=== PATIENT | male | born 1950 | race African-American/Black ===

== ENCOUNTER 2018-08-06 12:00 | Emergency (ER) | payer MEDICARE, MEDICAID ==
[~2018-08-06] VITALS: Ht 185.4 cm; Wt 81.8 kg
[2018-08-06] MEDS ORDERED: HYDR50TA PO (12:14)
[2018-08-06 13:57] LABS: BASOPHILS % (AUTO) 1.5 % (0.0-2.0); EOSINOPHILS % (AUTO) 2.1 % (1.0-6.0); HEMOGLOBIN 16.4 g/dL (13.5-17.5); LYMPHOCYTES # (AUTO) 1.5 K/uL (1.0-4.8); LYMPHOCYTES % (AUTO) 33.7 % (22.0-44.0); MEAN CORPUSCULAR HEMOGLOBIN 34.5 pg (26.0-34.0); MEAN CORPUSCULAR HGB CONC 34.1 G/dL (31.0-37.0); MEAN CORPUSCULAR VOLUME 101 fL (80-100); MONOCYTES # (AUTO) 0.7 K/uL (0.1-1.0); MONOCYTES % (AUTO) 14.8 % (2.0-9.0); NEUTROPHILS # (AUTO) 2.1 K/uL (1.8-7.7); NEUTROPHILS % (AUTO) 47.9 % (40.0-70.0); PLATELET COUNT (AUTO) 187 K/uL (150-450); RED BLOOD CELL COUNT(AUTO) 4.75 MIL/uL (4.50-5.90); RED CELL DISTRIBUTION WIDTH 13.5 % (11.5-14.5)
[2018-08-06 14:09] LABS: ANION GAP 4 mmol/L (8-16); CALCIUM, TOTAL 9.7 mg/dL (8.8-10.5); CARBON DIOXIDE 33 mmol/L (22-29); CHLORIDE 100 mmol/L (98-107); CREATININE 1.04 mg/dL (0.60-1.30); GLOMERULAR FILTR. RATE CALC > 60 mL/min (>60); GLUCOSE,RANDOM 98 mg/dL (70-110); POTASSIUM 4.6 mmol/L (3.5-5.1); SODIUM SERUM 137 mmol/L (136-145); UREA NITROGEN, BLOOD 13 mg/dL (7-18)
[2018-08-06 14:17] LABS: D-DIMER 0.24 mg/L FEU (0.00-0.50); PROTHROMBIN TIME 10.4 SEC (9.4-11.6)
[2018-08-06 14:23] LABS: APPEARANCE,URINE CLEAR (CLEAR); BILIRUBIN,URINE PRELIM. POSITIVE (NEGATIVE); GLUCOSE, URINE (UA) NEGATIVE (NEGATIVE); KETONES,URINE TRACE mg/dL (NEGATIVE); LEUKOCYTE ESTERASE ,URINE NEGATIVE (NEGATIVE); NITRATE,URINE NEGATIVE (NEGATIVE); OCCULT BLOOD,URINE TRACE (NEGATIVE); PH,URINE 6.5 (5.0-8.0); PROTEIN,URINE TRACE (NEGATIVE)
[2018-08-06 14:25] LABS: BACTERIA,URINE None Seen /HPF (None Seen); RBC,URINE 0-2 /HPF (0-2); WBC,URINE None Seen /HPF (0-5)
[2018-08-06 14:29] LABS: B-TYPE NATRIURETIC PEPTIDE 110 pg/mL (0-100)
[2018-08-06 14:33] LABS: ALANINE AMINOTRANSFERASE 40 U/L (12-78); ALKALINE PHOSPHATASE 119 U/L (46-116); ASPARTATE AMINOTRANSFERASE 42 U/L (15-37); BILIRUBIN,TOTAL 1.6 mg/dL (0.1-1.0); CREATINE KINASE, TOTAL ONLY 147 U/L (39-308); TOTAL PROTEIN, SERUM 8.8 g/dL (6.4-8.2)
[2018-08-06 16:11] VITALS: BP 150/93
[2018-08-07] MEDS ORDERED: LORA10TA7 PO (15:25)
[2018-08-07] MEDS ORDERED: VITAD1000 PO (15:25)
[2018-08-07] MEDS ORDERED: IBUP-2071 PO (15:25)
[2018-08-07] MEDS ORDERED: ATOR20TA86 PO (15:25)
[2018-08-07] MEDS ORDERED: LOSA1TAB37 PO (15:25)
== END 2018-08-06 16:14 | disposition home or self-care (01) ==
LOC: EMS 12:00
DX: R06.02 Shortness of breath (principal); R20.2 Paresthesia of skin; I10 Essential (primary) hypertension; R79.1 Abnormal coagulation profile
CPT/HCPCS: 85379; 93005; 99285

== ENCOUNTER 2018-08-07 15:19 | Inpatient (IN) | payer MEDICARE, MEDICAID ==
[~2018-08-07] VITALS: Ht 185.4 cm; Wt 88.2 kg
[~2018-08-07 15:19] MED LIST: HYDR50TA PO
[2018-08-07] MEDS ORDERED: LORA10TA7 PO (15:25)
[2018-08-07] MEDS ORDERED: ATOR20TA86 PO (15:25)
[2018-08-07] MEDS ORDERED: IBUP-2071 PO (15:25)
[2018-08-07] MEDS ORDERED: LOSA1TAB37 PO (15:25)
[2018-08-07] MEDS ORDERED: VITAD1000 PO (15:25)
[2018-08-07] MEDS ORDERED: MethylPREDNISolone SOD SUCC 125 MG/2 ML VIAL IVP ONE (17:15)
[2018-08-07] MEDS ORDERED: EPINEPHrine 1:1,000 [1 MG/ML] AMP IM ONE (17:15)
[2018-08-07] MEDS ORDERED: DiphenhydrAMINE HCL 50 MG/ML VIAL IVP ONE (17:15)
[2018-08-07] MEDS ORDERED: RANITIDINE HCL 25 MG/ML 2 ML VIAL IVP ONE (17:15)
[2018-08-07 17:20] LABS: BASOPHILS % (AUTO) 1.3 % (0.0-2.0); EOSINOPHILS % (AUTO) 2.1 % (1.0-6.0); HEMATOCRIT 45.9 % (41-53); HEMOGLOBIN 15.8 g/dL (13.5-17.5); LYMPHOCYTES # (AUTO) 1.8 K/uL (1.0-4.8); LYMPHOCYTES % (AUTO) 38.2 % (22.0-44.0); MEAN CORPUSCULAR HEMOGLOBIN 34.1 pg (26.0-34.0); MEAN CORPUSCULAR HGB CONC 34.5 G/dL (31.0-37.0); MEAN CORPUSCULAR VOLUME 99 fL (80-100); MONOCYTES # (AUTO) 0.6 K/uL (0.1-1.0); MONOCYTES % (AUTO) 12.5 % (2.0-9.0); NEUTROPHILS # (AUTO) 2.2 K/uL (1.8-7.7); NEUTROPHILS % (AUTO) 45.9 % (40.0-70.0); PLATELET COUNT (AUTO) 211 K/uL (150-450); RED BLOOD CELL COUNT(AUTO) 4.64 MIL/uL (4.50-5.90); RED CELL DISTRIBUTION WIDTH 13.3 % (11.5-14.5)
[2018-08-07 17:26] LABS: ANION GAP 6 mmol/L (8-16); CALCIUM, TOTAL 9.6 mg/dL (8.8-10.5); CARBON DIOXIDE 30 mmol/L (22-29); CHLORIDE 100 mmol/L (98-107); CREATININE 0.88 mg/dL (0.60-1.30); GLOMERULAR FILTR. RATE CALC > 60 mL/min (>60); GLUCOSE,RANDOM 95 mg/dL (70-110); POTASSIUM 4.3 mmol/L (3.5-5.1); SODIUM SERUM 136 mmol/L (136-145); UREA NITROGEN, BLOOD 11 mg/dL (7-18)
[2018-08-07 17:32] LABS: ALANINE AMINOTRANSFERASE 37 U/L (12-78); ALKALINE PHOSPHATASE 113 U/L (46-116); ASPARTATE AMINOTRANSFERASE 39 U/L (15-37); BILIRUBIN,TOTAL 1.2 mg/dL (0.1-1.0); TOTAL PROTEIN, SERUM 8.7 g/dL (6.4-8.2)
[2018-08-07 18:31] LABS: PLATELET MORPHOLOGY COMMENT GIANT PLTS PRESENT
[2018-08-07] MEDS ORDERED: ONDANSETRON HCL 4 MG/2 ML VIAL IVP PRN ×2 (19:45→22:30)
[2018-08-07] MEDS ORDERED: 0.9% SODIUM CHLORIDE 10 ML SYRINGE IVP PRN (19:45)
[2018-08-07] MEDS ORDERED: ACETAMINOPHEN 325 MG TABLET PO PRN ×2 (19:45→22:30)
[2018-08-07 21:22] VITALS: BP 160/91
[2018-08-07] MEDS ORDERED: BISACODYL 10 MG RECTAL RECTAL SUPPOSITORY PR PRN (22:30)
[2018-08-07] MEDS ORDERED: MORPHINE SULFATE 2 MG/ML SYRINGE IVP PRN (22:30)
[2018-08-07] MEDS ORDERED: MAGNESIUM HYDROXIDE SUSPENSION 30 ML UDCUP PO PRN (22:30)
[2018-08-07] MEDS: MethylPREDNISolone SOD SUCC 125 MG/2 ML VIAL IVP SCH (23:42)
[2018-08-07] MEDS: HEPARIN SODIUM,PORCINE 5,000 UNITS/ML VIAL SQ SCH (23:42)
[2018-08-07 23:57] VITALS: BP 159/93
[2018-08-08] MEDS ORDERED: MethylPREDNISolone SOD SUCC 125 MG/2 ML VIAL IVP SCH
[2018-08-08 04:45] VITALS: BP 182/107
[2018-08-08 05:45] VITALS: BP 155/104
[2018-08-08] MEDS: MethylPREDNISolone SOD SUCC 125 MG/2 ML VIAL IVP SCH ×3 (05:57→18:50)
[2018-08-08 07:30] VITALS: BP 162/94
[2018-08-08] MEDS: DOCUSATE SODIUM 100 MG CAPSULE PO SCH ×2 (09:00→21:00)
[2018-08-08] MEDS: PANTOPRAZOLE SODIUM 40 MG DR TABLET PO SCH (09:00)
[2018-08-08] MEDS: DiphenhydrAMINE HCL 50 MG/ML VIAL IVP SCH ×2 (09:16→20:55)
[2018-08-08] MEDS: FAMOTIDINE 10 MG/ML 2 ML VIAL IVP SCH ×2 (09:16→20:56)
[2018-08-08] MEDS: HEPARIN SODIUM,PORCINE 5,000 UNITS/ML VIAL SQ SCH ×2 (09:16→17:31)
[2018-08-08] MEDS: CHOLECALCIFEROL (VIT D3) 1,000 UNITS TABLET PO SCH (09:16)
[2018-08-08 11:15] VITALS: BP 148/87
[2018-08-08 15:14] VITALS: BP 150/100
[2018-08-08] MEDS: AmLODIPine BESYLATE 10 MG TABLET PO SCH (18:50)
[2018-08-08 19:42] VITALS: BP 153/94
[2018-08-08] MEDS: ATORVASTATIN CALCIUM 20 MG TABLET PO SCH (20:54)
[2018-08-08] MEDS: GuaiFENesin [SUGAR-FREE] 200 MG/10 ML SOLUTION UDCUP PO PRN (21:01)
[2018-08-09] MEDS: MethylPREDNISolone SOD SUCC 125 MG/2 ML VIAL IVP SCH ×4 (00:19→17:23)
[2018-08-09] MEDS: HEPARIN SODIUM,PORCINE 5,000 UNITS/ML VIAL SQ SCH ×3 (00:21→17:23)
[2018-08-09 00:25] VITALS: BP 145/82
[2018-08-09 05:01] VITALS: BP 148/73
[2018-08-09 07:12] VITALS: BP 154/97
[2018-08-09] MEDS: DOCUSATE SODIUM 100 MG CAPSULE PO SCH ×2 (09:00→20:31)
[2018-08-09] MEDS: PANTOPRAZOLE SODIUM 40 MG DR TABLET PO SCH (09:00)
[2018-08-09] MEDS: DiphenhydrAMINE HCL 50 MG/ML VIAL IVP SCH ×2 (09:31→20:20)
[2018-08-09] MEDS: FAMOTIDINE 10 MG/ML 2 ML VIAL IVP SCH ×2 (09:31→20:21)
[2018-08-09] MEDS: GuaiFENesin [SUGAR-FREE] 200 MG/10 ML SOLUTION UDCUP PO PRN (09:31)
[2018-08-09] MEDS: AmLODIPine BESYLATE 10 MG TABLET PO SCH (09:34)
[2018-08-09] MEDS: CHOLECALCIFEROL (VIT D3) 1,000 UNITS TABLET PO SCH (09:34)
[2018-08-09] MEDS: HYDROCODONE/ACETAMINOPHEN 5-325 MG TABLET PO PRN (09:42)
[2018-08-09 10:56] VITALS: BP 145/93
[2018-08-09 15:23] VITALS: BP 154/93
[2018-08-09 19:33] VITALS: BP 162/95
[2018-08-09] MEDS: ATORVASTATIN CALCIUM 20 MG TABLET PO SCH (20:20)
[2018-08-09] MEDS: ZOLPIDEM TARTRATE 5 MG TABLET PO PRN (22:26)
[2018-08-10 00:03] VITALS: BP 152/85
[2018-08-10] MEDS: HEPARIN SODIUM,PORCINE 5,000 UNITS/ML VIAL SQ SCH ×4 (00:14→23:37)
[2018-08-10] MEDS: MethylPREDNISolone SOD SUCC 125 MG/2 ML VIAL IVP SCH ×5 (00:15→23:36)
[2018-08-10 04:32] VITALS: BP 150/85
[2018-08-10 07:16] VITALS: BP 155/94
[2018-08-10] MEDS: DiphenhydrAMINE HCL 50 MG/ML VIAL IVP SCH ×2 (08:05→20:06)
[2018-08-10] MEDS: FAMOTIDINE 10 MG/ML 2 ML VIAL IVP SCH ×2 (08:06→20:06)
[2018-08-10] MEDS: PANTOPRAZOLE SODIUM 40 MG DR TABLET PO SCH (08:06)
[2018-08-10] MEDS: CHOLECALCIFEROL (VIT D3) 1,000 UNITS TABLET PO SCH (08:06)
[2018-08-10] MEDS: DOCUSATE SODIUM 100 MG CAPSULE PO SCH ×2 (08:06→20:04)
[2018-08-10] MEDS: AmLODIPine BESYLATE 10 MG TABLET PO SCH (08:06)
[2018-08-10] MEDS: HYDROCODONE/ACETAMINOPHEN 5-325 MG TABLET PO PRN ×2 (08:06→20:06)
[2018-08-10 11:31] VITALS: BP 141/94
[2018-08-10 15:39] VITALS: BP 163/94
[2018-08-10 19:44] VITALS: BP 154/108
[2018-08-10] MEDS: ATORVASTATIN CALCIUM 20 MG TABLET PO SCH (20:05)
[2018-08-10] MEDS: ZOLPIDEM TARTRATE 5 MG TABLET PO PRN (20:36)
[2018-08-11 00:20] VITALS: BP 137/83
[2018-08-11 05:23] VITALS: BP 152/97
[2018-08-11 06:55] LABS: BASOPHILS % (AUTO) 0.2 % (0.0-2.0); EOSINOPHILS % (AUTO) 0 % (1.0-6.0); HEMATOCRIT 46.6 % (41-53); HEMOGLOBIN 15.8 g/dL (13.5-17.5); LYMPHOCYTES # (AUTO) 1.2 K/uL (1.0-4.8); LYMPHOCYTES % (AUTO) 7.3 % (22.0-44.0); MEAN CORPUSCULAR HEMOGLOBIN 34.2 pg (26.0-34.0); MEAN CORPUSCULAR HGB CONC 33.8 G/dL (31.0-37.0); MEAN CORPUSCULAR VOLUME 101 fL (80-100); MONOCYTES # (AUTO) 0.8 K/uL (0.1-1.0); MONOCYTES % (AUTO) 5.1 % (2.0-9.0); NEUTROPHILS # (AUTO) 14.5 K/uL (1.8-7.7); PLATELET COUNT (AUTO) 219 K/uL (150-450); RED BLOOD CELL COUNT(AUTO) 4.61 MIL/uL (4.50-5.90); RED CELL DISTRIBUTION WIDTH 13.3 % (11.5-14.5)
[2018-08-11 06:56] LABS: ANION GAP 6 mmol/L (8-16); CALCIUM, TOTAL 8.8 mg/dL (8.8-10.5); CARBON DIOXIDE 30 mmol/L (22-29); CHLORIDE 101 mmol/L (98-107); GLOMERULAR FILTR. RATE CALC > 60 mL/min (>60); GLUCOSE,RANDOM 119 mg/dL (70-110); POTASSIUM 3.9 mmol/L (3.5-5.1); SODIUM SERUM 137 mmol/L (136-145); UREA NITROGEN, BLOOD 13 mg/dL (7-18)
[2018-08-11 06:58] LABS: NEUTROPHILS % (AUTO) 87.4 % (40.0-70.0)
[2018-08-11 07:47] VITALS: BP 150/90
[2018-08-11] MEDS: MethylPREDNISolone SOD SUCC 125 MG/2 ML VIAL IVP SCH (08:15)
[2018-08-11] MEDS: HEPARIN SODIUM,PORCINE 5,000 UNITS/ML VIAL SQ SCH (08:16)
[2018-08-11] MEDS: DiphenhydrAMINE HCL 50 MG/ML VIAL IVP SCH (08:17)
[2018-08-11] MEDS: PANTOPRAZOLE SODIUM 40 MG DR TABLET PO SCH (08:18)
[2018-08-11] MEDS: DOCUSATE SODIUM 100 MG CAPSULE PO SCH (08:18)
[2018-08-11] MEDS: CHOLECALCIFEROL (VIT D3) 1,000 UNITS TABLET PO SCH (08:18)
[2018-08-11] MEDS: AmLODIPine BESYLATE 10 MG TABLET PO SCH (08:18)
[2018-08-11] MEDS: FAMOTIDINE 10 MG/ML 2 ML VIAL IVP SCH (09:02)
[2018-08-11] MEDS ORDERED: PRED20 PO (10:32)
[2018-08-11] MEDS ORDERED: AMLO-512 PO (10:51)
== END 2018-08-11 11:20 | disposition home or self-care (01) | DRG 916 ==
LOC: EMS 15:21 → 5S 19:30
PROVIDERS: ADMIT Internal Medicine; ATTEND Internal Medicine
DX: T78.3XXA Angioneurotic edema, initial encounter (principal); I10 Essential (primary) hypertension; E78.5 Hyperlipidemia, unspecified; E78.00 Pure hypercholesterolemia, unspecified; E55.9 Vitamin D deficiency, unspecified; Z88.8 Allergy status to other drugs, medicaments and biological substances; Z82.49 Family history of ischemic heart disease and other diseases of the circulatory system
CPT/HCPCS: 83735; 85379; 86160; 93005; 96372; 96374; 96375; 99291; J0171; J1200; J1644; J2270; J2780; J2930; J3490

== ENCOUNTER 2018-10-12 16:39 | Emergency (ER) | payer MEDICARE, MEDICAID ==
[~2018-10-12] VITALS: Ht 180.3 cm; Wt 81.8 kg
[~2018-10-12 16:39] MED LIST changes: +AMLO-512 PO; +ATOR20TA86 PO; -HYDR50TA PO; +IBUP-2071 PO; +LORA10TA7 PO; +PRED20 PO; +VITAD1000 PO
[2018-10-12 18:36] LABS: BASOPHILS % (AUTO) 1.2 % (0.0-2.0); EOSINOPHILS % (AUTO) 0.7 % (1.0-6.0); HEMATOCRIT 47.1 % (41-53); HEMOGLOBIN 16.2 g/dL (13.5-17.5); LYMPHOCYTES # (AUTO) 1.2 K/uL (1.0-4.8); LYMPHOCYTES % (AUTO) 23.9 % (22.0-44.0); MEAN CORPUSCULAR HEMOGLOBIN 33.7 pg (26.0-34.0); MEAN CORPUSCULAR HGB CONC 34.3 G/dL (31.0-37.0); MEAN CORPUSCULAR VOLUME 98 fL (80-100); MONOCYTES # (AUTO) 0.7 K/uL (0.1-1.0); MONOCYTES % (AUTO) 14.1 % (2.0-9.0); NEUTROPHILS % (AUTO) 60.1 % (40.0-70.0); PLATELET COUNT (AUTO) 192 K/uL (150-450); RED BLOOD CELL COUNT(AUTO) 4.79 MIL/uL (4.50-5.90); RED CELL DISTRIBUTION WIDTH 13.7 % (11.5-14.5)
[2018-10-12 18:44] LABS: ANION GAP 8 mmol/L (8-16); CARBON DIOXIDE 31 mmol/L (22-29); CHLORIDE 98 mmol/L (98-107); CREATININE 0.96 mg/dL (0.60-1.30); GLOMERULAR FILTR. RATE CALC > 60 mL/min (>60); GLUCOSE,RANDOM 89 mg/dL (70-110); POTASSIUM 3.2 mmol/L (3.5-5.1); SODIUM SERUM 137 mmol/L (136-145); UREA NITROGEN, BLOOD 12 mg/dL (7-18)
[2018-10-12 18:50] LABS: ALANINE AMINOTRANSFERASE 46 U/L (12-78); ALBUMIN 4.3 g/dL (3.4-5.0); ALKALINE PHOSPHATASE 116 U/L (46-116); ASPARTATE AMINOTRANSFERASE 60 U/L (15-37); BILIRUBIN,TOTAL 1.1 mg/dL (0.1-1.0); TOTAL PROTEIN, SERUM 8.8 g/dL (6.4-8.2)
[2018-10-12 19:15] LABS: PLATELET MORPHOLOGY COMMENT GIANT PLTS PRESENT
[2018-10-12] MEDS ORDERED: POTASSIUM CHLORIDE 20 MEQ ER TABLET PO ONE (20:00)
[2018-10-12] MEDS ORDERED: ASPIRIN 81 MG CHEWABLE TABLET PO ONE (20:45)
[2018-10-12] MEDS ORDERED: CloNIDine HCL 0.1 MG TABLET PO ONE (21:45)
[2018-10-12] MEDS ORDERED: AmLODIPine BESYLATE 5 MG TABLET PO ONE (22:30)
[2018-10-12 23:12] VITALS: BP 156/95
== END 2018-10-12 23:20 | disposition home or self-care (01) ==
LOC: EMS 16:39
DX: E87.6 Hypokalemia (principal); R07.9 Chest pain, unspecified; I10 Essential (primary) hypertension; E78.00 Pure hypercholesterolemia, unspecified; Z88.8 Allergy status to other drugs, medicaments and biological substances
CPT/HCPCS: 93005